=== PATIENT | female | born 1955 | race Caucasian/White ===

== ENCOUNTER 2024-10-12 20:54 | Emergency (ER) | payer BC ==
[~2024-10-12] VITALS: Ht 172.7 cm; Wt 86.0 kg
[2024-10-12 20:59] VITALS: BP 122/92; RESP 16; TEMP 36.7; O2SAT 99
[2024-10-12 21:04] VITALS: PULSE 84; O2SAT 98
[2024-10-12 21:45] VITALS: TEMP 98
[2024-10-12] MEDS: ACETAMINOPHEN 325MG TABLET PO ONE (21:45)
[2024-10-12] MEDS ORDERED: CEPH500T MT (23:28)
== END 2024-10-12 23:55 ==
LOC: ER 20:54
DX: N39.0 Urinary tract infection, site not specified (principal); Z91.040 Latex allergy status
CPT/HCPCS: 99283